=== PATIENT | female | born 1985 ===

== ENCOUNTER 2018-06-10 10:17 | Outpatient (CLI) | payer OTHER ==
[~2018-06-10] VITALS: Ht 167.6 cm; Wt 68.0 kg
== END 2018-06-10 10:35 | disposition home or self-care (01) ==
LOC: OFIC 805 10:17
DX: H61.23 Impacted cerumen, bilateral (principal); E04.1 Nontoxic single thyroid nodule

== ENCOUNTER 2018-07-18 10:35 | Outpatient (CLI) | payer OTHER ==
[~2018-07-18] VITALS: Ht 152.4 cm; Wt 68.0 kg
== END 2018-07-18 10:50 | disposition home or self-care (01) ==
LOC: OFIC 805 10:35
DX: R22.1 Localized swelling, mass and lump, neck (principal)